=== PATIENT | female | born 1955 | race Two or more races ===

== ENCOUNTER 2024-06-26 06:41 | Day surgery (SDC) | payer OTHER ==
[2024-06-19 13:48] VITALS: BP 143/80
[2024-06-19 16:01] LABS: INR 1.09; PARTIAL THROMBOPLASTIN TIME 26.2 SECONDS (22.0-34.0); PROTHROMBIN TIME 11.8 SECONDS (9.0-11.5)
[~2024-06-26 06:41] MED LIST: COZAAR100 MG PO; NOVOLOG FL100 UNIT/1; NOVOLOG FL100 UNIT/1 SQ; SIMVASTATIN20 MG PO; SYNTHROID50 MCG PO
[2024-06-26] MEDS ORDERED: POVIDONE-IODINE 118 ML BOTT TOP ONE (09:00)
[2024-06-26] MEDS ORDERED: CEFAZOLIN SODIUM 1,000 MG VIAL IV ONE (09:00)
== END 2024-06-26 12:30 | disposition home or self-care (01) ==
LOC: CIR.AMB 06:41
PROVIDERS: ATTEND Obstetrics & Gynecology
DX: N84.0 Polyp of corpus uteri (principal)